=== PATIENT | male | born 2000 | race Caucasian/White ===

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

== ENCOUNTER 2021-03-28 20:05 | Emergency (ER) | payer BC, OTHER ==
[~2021-03-28] VITALS: Ht 198.1 cm; Wt 127.0 kg
[~2021-03-28 20:05] MED LIST changes: +DIPHENHIST50 MG PO; +PEPCID20 MG PO; +[UNRECOGNIZED DRUG - OTHER] PO
[2021-03-28] MEDS ORDERED: LEVOFLOXACIN750 MG PO (21:21)
[2021-03-28 21:26] VITALS: BP 148/82
== END 2021-03-28 21:26 | disposition home or self-care (01) ==
LOC: ER 20:05
DX: L03.032 Cellulitis of left toe (principal); J45.909 Unspecified asthma, uncomplicated; Z88.5 Allergy status to narcotic agent; Z91.010 Allergy to peanuts; Z91.013 Allergy to seafood